=== PATIENT | male | born 1995 | race Caucasian/White ===

== ENCOUNTER 2022-03-15 19:59 | Emergency (ER) | payer OTHER ==
[~2022-03-15] VITALS: Ht 175.3 cm; Wt 72.0 kg
[2022-03-15 20:06] VITALS: BP 147/81
[2022-03-15] MEDS ORDERED: SODIUM CHLORIDE 0.9% 1,000 ML IV ONE (22:45)
[2022-03-15] MEDS ORDERED: METOCLOPRAMIDE HCL 10MG/2ML VIAL IV ONE (22:45)
[2022-03-15 23:32] LABS: BASOPHILS % 0.2 % (0.0-2.0); EOSINOPHILS % 0.2 % (0.0-5.0); HEMATOCRIT. 49.3 % (42.0-52.0); HEMOGLOBIN. 16.7 g/dL (14.0-18.0); LYMPHOCYTES % 14.9 % (20.0-50.0); MEAN CORPUSCULAR VOLUME 88.5 fL (80.0-94.0); MEAN PLATELET VOLUME 8.9 fl (7.4-10.4); MONOCYTES % 4.3 % (2.0-8.0); NEUTROPHILS % 80.4 % (40.0-76.0); PLATELET 243 x1000/uL (130-400); RED BLOOD CELL COUNT 5.58 mill/uL (4.7-6.1)
[2022-03-16 00:03] LABS: CHLORIDE 103 mEq/L (98-107)
[2022-03-16] MEDS ORDERED: ONDA4TAB50 MT (00:21)
== END 2022-03-16 00:24 | disposition home or self-care (01) ==
LOC: ER 20:29
DX: R11.2 Nausea with vomiting, unspecified (principal); R51.9 Headache, unspecified
CPT/HCPCS: 36415; 80053; 83690; 85025; 96361; 96374; 99283; J2765; J7030